=== PATIENT | female | born 1955 | race Caucasian/White ===

== ENCOUNTER 2016-11-23 09:38 | Day surgery (SDC) | payer OTHER ==
[~2016-11-23] VITALS: Ht 167.6 cm; Wt 62.6 kg
[~2016-11-23 09:38] MED LIST: ACIDOPHILUS1 EAC5 PO; DEXILANT60 MG PO; KRILL OIL PO; MOTRIN IB200 MG PO; NOHOMEMEDS; OMEGA PO; PROBIOTIC1 EAC1 PO; XANAX0.25 MG PO
[2016-11-23 10:14] VITALS: BP 147/82
[2016-11-23 10:46] LABS: HEMATOCRIT 41.5 % (36.0-46.0); MCH 31.1 PG (29.0-34.0); MCV 94.3 FL (83-99); MEAN PLAT.VOLUME 9.5 uM^3 (9.5-12.4); PLATELET COUNT 296 K/uL (156-360); RBC DIS.WIDTH-CV 11.9 % (11.8-14.6); RBC DIS.WIDTH-SD 41.4 % (39-53); WHITE BLOOD COUNT 4.6 K/uL (4.1-10.2)
[2016-11-23 11:17] LABS: ANION GAP 9 MEQ/L (2-14); CHLORIDE 105 MEQ/L (99-109); GFR ESTIMATE (CALCULATED) > 59 mL/min/; GLUCOSE 88 mg/dL (70-99); SAMPLE HEMOLYSIS CHECK 0; SAMPLE ICTERIC CHECK 0; SAMPLE LIPEMIA CHECK 0; SODIUM 143 MEQ/L (136-147); UREA NITROGEN (BUN) 9 mg/dL (9-23)
[2016-11-23] MEDS ORDERED: NORCO 5/3251 TABLET PO (13:34)
[2016-11-23 14:59] VITALS: BP 131/69
[2016-11-23 15:29] VITALS: BP 139/77
== END 2016-11-23 15:42 | disposition home or self-care (01) ==
LOC: SDC 09:38
PROVIDERS: Surgery
PROC: 0FT44ZZ Resection of Gallbladder, Percutaneous Endoscopic Approach (ICD-10-PCS; principal; 2016-11-23)
DX: K80.10 Calculus of gallbladder with chronic cholecystitis without obstruction (principal); K21.0 Gastro-esophageal reflux disease with esophagitis; M19.90 Unspecified osteoarthritis, unspecified site; Z53.09 Procedure and treatment not carried out because of other contraindication; Z82.49 Family history of ischemic heart disease and other diseases of the circulatory system; Z83.3 Family history of diabetes mellitus; Z82.5 Family history of asthma and other chronic lower respiratory diseases; Z80.0 Family history of malignant neoplasm of digestive organs
CPT/HCPCS: 80048; 85027; 88304; C1769; J0131; J1170; J2250; J3010; S0020